=== PATIENT | female | born 1960 | race Caucasian/White ===

== ENCOUNTER 2024-07-17 13:58 | Emergency (ER) | payer OTHER ==
[~2024-07-17] VITALS: Ht 157.5 cm; Wt 81.8 kg
[2024-07-17 14:08] VITALS: BP 163/90; TEMP 98.1
[2024-07-17] MEDS ORDERED: ILOTYCIN5 MG/GM OP (15:56)
[2024-07-17] MEDS ORDERED: Erythromycin 0.5% Ophth Oint 3.5 GM TUBE OP ONE (16:00)
[2024-07-17 16:05] VITALS: PULSE 70
== END 2024-07-17 16:05 | disposition home or self-care (01) ==
LOC: COL.ER 13:58
DX: S05.02XA Injury of conjunctiva and corneal abrasion without foreign body, left eye, initial encounter (principal); X58.XXXA Exposure to other specified factors, initial encounter